=== PATIENT | female | born 1995 | race Caucasian/White ===

== ENCOUNTER 2016-12-07 04:40 | Inpatient (IN) | payer OTHER ==
[2016-12-07] MEDS ORDERED: Sodium Chloride 0.9% 10 ML Syringe FLUSH PRN (05:39)
[2016-12-07] MEDS ORDERED: Nalbuphine 20 MG/1 ML Amp IVPUSH PRN (05:39)
[2016-12-07] MEDS ORDERED: Lidocaine 1% 50 ML MDV INJECT ONE (05:39)
[2016-12-07] MEDS ORDERED: Ondansetron 4 MG/2 ML SDV IVPUSH PRN ×2 (05:39→07:35)
[2016-12-07] MEDS ORDERED: Lactated Ringers 1,000 ML IV SCH (05:45)
[2016-12-07] MEDS ORDERED: Oxytocin/Lactated Ringers 10 UNIT/1,000 ML BAG IV SCH (05:45)
[2016-12-07] MEDS ORDERED: fentaNYL 100 MCG/2 ML SDV EPIDUR PRN (07:35)
[2016-12-07] MEDS ORDERED: ePHEDrine 50 MG/ML SDV IVPUSH PRN (07:35)
--- NOTE | 2016-12-07 07:37 | PCM.PREANE ---
Preanesthetic Assessment - Physical Assessment Height: 1.63 m Weight: 99.79 kg - Lab Values: Laboratory Last Values WBC 18.32 K/mm3 (3.98-10.04) H 12/07/16 05:38 RBC 4.42 M/mm3 (3.98-5.22) 12/07/16 05:38 Hgb 12.7 gm/L (11.2-15.7) 12/07/16 05:38 Hct 37.4 % (34.1-44.9) 12/07/16 05:38 MCV 84.6 fl (79.4-94.8) 12/07/16 05:38 MCH 28.7 pg (25.6-32.2) 12/07/16 05:38 MCHC 34.0 g/dl (32.2-35.5) 12/07/16 05:38 RDW Std Deviation 46.8 fL (36.4-46.3) H 12/07/16 05:38 Plt Count 232 K/mm3 (182-369) 12/07/16 05:38 MPV 12.4 fl (9.4-12.3) H 12/07/16 05:38 Neut % (Auto) 83.7 % (34.0-71.1) H 12/07/16 05:38 Lymph % (Auto) 11.6 % (19.3-51.7) L 12/07/16 05:38 [place] % (Auto) 4.3 % (4.7-12.5) L 12/07/16 05:38 Eos % (Auto) 0.1 (0.7-5.8) L 12/07/16 05:38 Baso % (Auto) 0.1 % (0.1-1.2) 12/07/16 05:38 Neut # (Auto) 15.32 K/mm3 (1.56-6.13) H 12/07/16 05:38 Lymph # (Auto) 2.13 K/mm3 (1.18-3.74) 12/07/16 05:38 [place] # (Auto) 0.79 K/mm3 (0.24-0.36) H 12/07/16 05:38 Eos # (Auto) 0.02 K/mm3 (0.04-0.36) L 12/07/16 05:38 Baso # (Auto) 0.02 K/mm3 (0.01-0.08) 12/07/16 05:38 Blood Type O POSITIVE 12/07/16 05:38 Gel Antibody Screen Negative 12/07/16 05:38 - Allergies Allergies/Adverse Reactions: Allergies Allergy/AdvReac Type Severity Reaction Status Date / Time No Known Allergies Allergy Verified 05/07/16 18:06 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 , Other (see below) Other OB/BYN History: Child delivered by - SUBSTANCE USE Smoking Status *Q: Never Smoker Second Hand Smoke Exposure: Yes Recreational Drug Use History: No - HOME MEDS Home Medications: Home Meds Vits #90/Iron Fum/FA [ Formula] 1 tab PO DAILY 12/06/16 [ History] - CURRENT (IN HOUSE) MEDS Current Meds: Current Medications Lactated Ringer's (Ringers, Lactated) 1,000 mls @ 100 mls/hr IV ASDIRECTED JAMAL Oxytocin/Lactated Ringer's (Pitocin In Lr 10 Units/1,000 Ml) 10 unit in 1,000 mls @ 500 mls/hr IV TITRATE JAMAL Nalbuphine HCl (Nubain) 10 mg IVPUSH Q2H PRN PRN Reason: Pain (moderate 4-6) Ondansetron HCl (Zofran) 4 mg IVPUSH Q4H PRN PRN Reason: Nausea/Vomiting Sodium Chloride (Saline Flush) 10 ml FLUSH ASDIRECTED PRN PRN Reason: Keep Vein Open Discontinued Medications Lidocaine HCl (Xylocaine 1%) 50 ml INJECT ONETIME ONE Stop: 12/07/16 05:40 Preanesthetic Assessment - ANESTHESIA/TRANSFUSION/FAMILY HX Anesthesia/Transfusion History: No Prior Anesthesia, No Prior Transfusion(s) Family History of Anesthesia Reaction: No Intubation History: Unknown - REVIEW OF SYSTEMS Constitutional: Reports: no symptoms 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: 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 Respiratory: Reports: no symptoms Cardiovascular: Reports: blood pressure problem (gestational hypertension no treatment warranted) GI: Reports: no symptoms Other: Reports: None - PHYSICAL ASSESSMENT HR: 93 O2 Sat by Pulse Oximetry: 98 RR: 22 BP: 140/96 Temp: 36.7 C Height: 1.63 m Weight: 99.79 kg NPO Status Date: 12/06/16 NPO Status Time: 19:00 ASA Class: 2 Mental Status: Alert & Oriented x3 Airway Class: Mallampati = 2 Dentition: Reports: Normal Dentition, Caries Thyro-Mental Finger Breadths: 3 Mouth Opening Finger Breadths: 3 ROM/Head Extension: Full Respiratory Status: lungs clear to auscultation bilaterally Cardiovascular Status: regular rate & rhythm, normal S1, S2, no murmur, blood pressure WNL - LAB Values: Laboratory Last Values WBC 18.32 K/mm3 (3.98-10.04) H 12/07/16 05:38 RBC 4.42 M/mm3 (3.98-5.22) 12/07/16 05:38 Hgb 12.7 gm/L (11.2-15.7) 12/07/16 05:38 Hct 37.4 % (34.1-44.9) 12/07/16 05:38 MCV 84.6 fl (79.4-94.8) 12/07/16 05:38 MCH 28.7 pg (25.6-32.2) 12/07/16 05:38 MCHC 34.0 g/dl (32.2-35.5) 12/07/16 05:38 RDW Std Deviation 46.8 fL (36.4-46.3) H 12/07/16 05:38 Plt Count 232 K/mm3 (182-369) 12/07/16 05:38 MPV 12.4 fl (9.4-12.3) H 12/07/16 05:38 Neut % (Auto) 83.7 % (34.0-71.1) H 12/07/16 05:38 Lymph % (Auto) 11.6 % (19.3-51.7) L 12/07/16 05:38 [place] % (Auto) 4.3 % (4.7-12.5) L 12/07/16 05:38 Eos % (Auto) 0.1 (0.7-5.8) L 12/07/16 05:38 Baso % (Auto) 0.1 % (0.1-1.2) 12/07/16 05:38 Neut # (Auto) 15.32 K/mm3 (1.56-6.13) H 12/07/16 05:38 Lymph # (Auto) 2.13 K/mm3 (1.18-3.74) 12/07/16 05:38 [place] # (Auto) 0.79 K/mm3 (0.24-0.36) H 12/07/16 05:38 Eos # (Auto) 0.02 K/mm3 (0.04-0.36) L 12/07/16 05:38 Baso # (Auto) 0.02 K/mm3 (0.01-0.08) 12/07/16 05:38 Blood Type O POSITIVE 12/07/16 05:38 Gel Antibody Screen Negative 12/07/16 05:38 Reviewed and Noted. - ALLERGIES Allergies/Adverse Reactions: Allergies Allergy/AdvReac Type Severity Reaction Status Date / Time No Known Allergies Allergy Verified 05/07/16 18:06 - ANESTHESIA PLAN Preop Beta Birgit: No Anesthesia Type Planned: Epidural - ACKNOWLEDGEMENTS Pt an Appropriate Candidate for the Planned Anesthesia: Yes Alternatives and Risks of Anesthesia Discussed w Pt/Guardian: Yes Pt/Guardian Understands and Agrees with Anesthesia Plan: Yes
[2016-12-07] MEDS ORDERED: Bupivacaine/fentaNYL/NS 100 ML Bag EPIDUR SCH (07:45)
--- NOTE | 2016-12-07 10:17 | PCM.LDHP ---
L&D History of Present Illness - General Date of Service: 12/07/16 Admit Problem/Dx: Patient Status Order with Admit Dx/Problem 12/07/16 05:39 Patient Status [ADT] Routine 12/07/16 08:38 Patient Status [ADT] Routine Admission Diagnosis/Problem Admission Diagnosis/Problem 12/07/16 10:10 39-5/7 week intrauterine , active labor, history of previous section desire for vaginal after section Source of Information: Patient History Limitations: Reports: No limitations - History of Present Illness Introduction:: History present illness patient is a 21-year-old 4 para 10-1 white female who is admitted in active labor, cervical dilation of 5 cm and renetta every 3 minutes. She was in earlier and found to be possibly in early labor versus false labor. She is now returned. heart tones are reassuring upon admission and patient rapidly went to complete cervical dilation. She has history of previous section which was done for failure to progress after induction which was done for elective reasons. She wished to at this time and appeared to be a good candidate for . The procedure of , risks, benefits, possible need for section are all discussed with the patient beforehand and consent signed. The patient is a for section in case that was necessary. Anesthesia and surgery crews were alerted of the patient's presence in labor and delivery. IV was established and the patient was continuously monitored. 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 She had one delivery on 09/30/2012 that was a section for failure to progress. 6 lbs. 8 oz. female born and followed in [facility]. The baby's name is Shaan. Patient's had 2 miscarriages at approximately 5 weeks gestational age. Both in June of 2014 and 2014. course has been relatively unremarkable. She declined flu vaccine. Her [place] depression screen scar was too. She group B strep screen was negative. Patient had menarche at age 10. Cycles q. 20 days. Positive hCG was on 04/04/2016. Her last menstrual period 2015 which is what her was dated by. She had 4 ultrasounds after that and all supported her MARY. She was noted to be rubella immune. She had her diphtheria pertussis tetanus shot on 10/09/2016. Her first visit was on 06/03/2016. Her weight gain during the course of was approximately 27 pounds. Her vital signs remained stable throughout the and her fundal height growth was appropriate. laboratory testing: Blood is O. positive. Negative and breast-feeding. Platelets at first it was over 389,000. Pap smear was negative. Rubella titer showed immunity. RPR is nonreactive. Hepatitis B surface antigen and HIV assays were negative. Chlamydia and gonorrhea tests were negative. Her one-hour GTT was normal at 112. Her of platelets and second trimester were 369,000. Hemoglobin is 12.1. Group B strep screen was negative. Hemoglobin and third trimester was 11.4 and patient was started on iron therapy. Allergies none Medications: Of 1. vitamins daily 2. Ferrous sulfate 325 mg daily. Past medical history: 1. Miscarriage x2 2. Secondary infertility. Past surgical history: section 2012. Family history is noncontributory no bleeding, blood clotting, and a seizure as problems noted in the family. Social history: Patient is . is [place]. She denies any significant loss of alcohol, drugs or tobacco. She lives in [place]. Review of systems. Cardiac-negative Respiratory-normal Breasts-changes consistent with GI-normal -changes consistent with Neurological-normal Musculoskeletal-normal The exam: General this is a well-developed, well-nourished, pleasant female stated age distress. Last evaluation in clinic on 12/04/2016 her blood pressure was 136/82. Her weight was 218. In general patient well-developed, well-nourished, pleasant young stated age in no acute distress. Skin is warm dry without lesions. HEENT, neck and back within normal Lungs are clear with good breath sounds in all bentley. Cardiovascular exam shows regular rate and rhythm without murmurs. Breast exam deferred. Abdomen is protuberant with with last fundal height clinic being 39 cm. Baby in vertex presentation on cervical exam. Cervical exam 5 cm, benefits, bag calderon, anterior, very soft when examined upon admission in labor and delivery in labor. 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 , Other (see below) Other OB/BYN History: Child delivered by Social & Family History - Tobacco Use Smoking Status *Q: Never Smoker Second Hand Smoke Exposure: Yes - Recreational Drug Use Recreational Drug Use: No H&P Review of Systems - Review of Systems: Review Of Systems: See Below L&D Exam - Exam Exam: See Below - Vital Signs Vital Signs: Last Vital Signs Temp 36.7 C 12/07/16 07:57 Pulse 93 12/07/16 07:57 Resp 22 H 12/07/16 07:57 BP 140/96 H 12/07/16 07:57 Pulse Ox 98 12/07/16 07:57 Weight: 99.79 kg - Patient Data Lab Results last 24 hrs: Laboratory Results - last 24 hr 12/07/16 12/07/16 Range/Units 05:38 05:38 WBC 18.32 H (3.98-10.04) K/mm3 RBC 4.42 (3.98-5.22) M/mm3 Hgb 12.7 (11.2-15.7) gm/L Hct 37.4 (34.1-44.9) % MCV 84.6 (79.4-94.8) fl MCH 28.7 (25.6-32.2) pg MCHC 34.0 (32.2-35.5) g/dl RDW Std Deviation 46.8 H (36.4-46.3) fL Plt Count 232 (182-369) K/mm3 MPV 12.4 H (9.4-12.3) fl Neut % (Auto) 83.7 H (34.0-71.1) % Lymph % (Auto) 11.6 L (19.3-51.7) % [place] % (Auto) 4.3 L (4.7-12.5) % Eos % (Auto) 0.1 L (0.7-5.8) Baso % (Auto) 0.1 (0.1-1.2) % Neut # (Auto) 15.32 H (1.56-6.13) K/mm3 Lymph # (Auto) 2.13 (1.18-3.74) K/mm3 [place] # (Auto) 0.79 H (0.24-0.36) K/mm3 Eos # (Auto) 0.02 L (0.04-0.36) K/mm3 Baso # (Auto) 0.02 (0.01-0.08) K/mm3 Blood Type O POSITIVE Gel Antibody Screen Negative Result Diagrams: 12/07/16 05:38 Problem List Initiated/Reviewed/Updated: Yes Orders Last 24hrs: Active Orders 24 hr Category Date Time Status Patient Status [ADT] Routine ADT 12/07/16 08:38 Active Activity as Tolerated [RC] PFP Care 12/07/16 05:39 Active Communication Order [RC] ASDIRECTED Care 12/07/16 05:39 Active Notify Provider [RC] ASDIRECTED Care 12/07/16 07:35 Active Notify Provider [RC] PFP Care 12/07/16 05:39 Active Notify Provider [RC] PRN Care 12/07/16 05:39 Active Peripheral IV Care [RC] . DIRECTED Care 12/07/16 05:40 Active Vital Signs [RC] PER UNIT ROUTINE Care 12/07/16 05:39 Active Clear Liquid Diet [DIET] Diet 12/07/16 Breakfast Active Bupivacaine/fentaNYL/NS [fentaNYL/Bupivacaine/NS 2 MCG- Med 12/07/16 07:45 Active 0.125% 100 ML] 100 ml EPIDUR ASDIRECTED Lactated Ringers [Ringers, Lactated] 1,000 ml Med 12/07/16 05:45 Active IV ASDIRECTED Nalbuphine [Nubain] Med 12/07/16 05:39 Active 10 mg IVPUSH Q2H PRN Ondansetron [Zofran] Med 12/07/16 07:35 Active 4 mg IVPUSH ONETIME PRN Ondansetron [Zofran] Med 12/07/16 05:39 Active 4 mg IVPUSH Q4H PRN Oxytocin/Lactated Ringers [Pitocin in LR 10 Units/1,000 Med 12/07/16 05:45 Active ML] 10 unit in 1,000 ml IV TITRATE Sodium Chloride 0.9% [Saline Flush] Med 12/07/16 05:39 Active 10 ml FLUSH ASDIRECTED PRN ePHEDrine [ePHEDrine Sulfate] Med 12/07/16 07:35 Active 5 mg IVPUSH ASDIRECTED PRN fentaNYL [Sublimaze] Med 12/07/16 07:35 Active 100 mcg EPIDUR Q3H PRN Electronic Heart Tones Ext w TOCO [WOMSER] Oth 12/07/16 05:39 Ordered Routine Electronic Heart Tones Internal [WOMSER] Per Unit Oth 12/07/16 05:39 Ordered Routine Peripheral IV Insertion Adult [OM.PC] Routine Oth 12/07/16 05:39 Ordered Resuscitation Status Routine Resus Stat 12/07/16 05:39 Ordered Medication Orders Ephedrine Sulfate (Ephedrine Sulfate) 5 mg IVPUSH ASDIRECTED PRN PRN Reason: Hypotension Fentanyl (Sublimaze) 100 mcg EPIDUR Q3H PRN PRN Reason: Pain Last Admin: 12/07/16 07:50 Dose: 100 mcg Fentanyl/Bupivacaine HCl (Fentanyl/Bupivacaine/Ns 2 Mcg-0.125% 100 Ml) 100 ml EPIDUR ASDIRECTED [facility] Last Admin: 12/07/16 07:50 Dose: 100 ml Lactated Ringer's (Ringers, Lactated) 1,000 mls @ 100 mls/hr IV ASDIRECTED [facility] Last Admin: 12/07/16 07:55 Dose: 999 mls/hr Oxytocin/Lactated Ringer's (Pitocin In Lr 10 Units/1,000 Ml) 10 unit in 1,000 mls @ 500 mls/hr IV TITRATE [facility] Last Admin: 12/07/16 09:45 Dose: 999 mls/hr Nalbuphine HCl (Nubain) 10 mg IVPUSH Q2H PRN PRN Reason: Pain (moderate 4-6) Last Admin: 12/07/16 07:40 Dose: 10 mg Ondansetron HCl (Zofran) 4 mg IVPUSH Q4H PRN PRN Reason: Nausea/Vomiting Ondansetron HCl (Zofran) 4 mg IVPUSH ONETIME PRN PRN Reason: Nausea/Vomiting Sodium Chloride (Saline Flush) 10 ml FLUSH ASDIRECTED PRN PRN Reason: Keep Vein Open Assessment/Plan Comment:: Assessment: 1. Term intrauterine at 39-5/7 weeks gestational size, active labor, history of previous section with desire for vaginal after section 2. Risks for the include history of previous section. 3. T. dap up-to-date 4. Patient plans to nurse 5. Epidural in labor and delivery. Plan: 1. Anticipate successful with vaginal . 2. Continues monitoring 3. IV access, labs to be done, consents for and the. Have alerted anesthesia and surgery Tomer left and is in house 4. Support nursing decision
--- NOTE | 2016-12-07 10:18 | PCM.SN ---
- Free Text/Narrative Note: Cathy is a 21-year-old 4, now para 2-0-2-2 female who came to L&D with regular contractions this morning at 38-5/7 weeks gestation. She was having quite a bit of pain so she received an epidural and felt much relief. She quickly progressed to complete dilation. At 0944 hours, she delivered a viable 3050g (6lbs, 11.6oz), 19.5 inch female over an intact perineum. She had a minor left vaginal wall laceration that was repaired with 3- 0 monocryl. Baby's name is "Saray Blanton". A 3-vessel cord was appreciated. IV Pitocin was started immediately after delivery of the . The placenta then delivered at 0949 hours in a Crane presentation. It was found to be intact. EBL 100 cc. Patient plans to breast feed. Mom and baby both doing well.
[2016-12-07] MEDS ORDERED: Benzocaine/Menthol 20%-0.5% Spray 56 GM Canister TOP PRN (10:23)
[2016-12-07] MEDS ORDERED: Lanolin 100% Cream 7 GM Tube TOP PRN (10:23)
[2016-12-07] MEDS ORDERED: Docusate Sodium 100 MG Cap PO PRN (10:23)
[2016-12-07] MEDS ORDERED: Acetaminophen 325 MG Tab PO PRN (10:23)
[2016-12-07] MEDS ORDERED: Witch Hazel Medicated Pads 100/Jar TOP PRN (10:23)
[2016-12-07] MEDS: Ibuprofen 600 MG Tab PO PRN ×2 (19:37→23:58)
[2016-12-07] MEDS ORDERED: Bupivacaine 0.25% 10 ML SDV ONE (22:22)
[2016-12-08] MEDS: Ibuprofen 600 MG Tab PO PRN (07:09)
[2016-12-08] MEDS ORDERED: Prenatal Multivitamin with Calcium/Folic Acid/Iron Tab PO SCH (09:00)
[2016-12-08 09:06] VITALS: BP 142/83
--- NOTE | 2016-12-08 11:52 | PCM.DCSUM1 ---
Discharge Summary - Hospital Course Free Text/Narrative:: Cathy is a 21-year-old 4, now para 2-0-2-2 female who came to L&D with regular contractions this morning at 38-5/7 weeks gestation. She was having quite a bit of pain so she received an epidural and felt much relief. She quickly progressed to complete dilation. At 0944 hours, she delivered a viable 3050g (6lbs, 11.6oz), 19.5 inch female over an intact perineum. She had a minor left vaginal wall laceration that was repaired with 3- 0 monocryl. Baby's name is "Saray Blanton". A 3-vessel cord was appreciated. IV Pitocin was started immediately after delivery of the . The placenta then delivered at 0949 hours in a Crane presentation. It was found to be intact. EBL 100 cc. Patient plans to breast feed. Mom and baby both doing well. has been unremarkable. Minimal lochia. Voiding well. Ambulating without problems. Pt. ready for discharge. - Discharge Data Discharge Date: 12/08/16 Discharge Disposition: Home, Self-Care 01 Condition: Good - Patient Instructions Diet: Usual Diet as Tolerated (nursing diet with increased calcium and calories) Activity: As Tolerated (No intercourse or tampons until bleeding resolves.) Driving: May Drive Today, Do Not Drive Showering/Bathing: May Shower (May take a bath) Notify Provider of: Fever, Increased Pain, Swelling and Redness, Nausea and/or Vomiting - Discharge Plan Home Medications: Home Meds Vits #90/Iron Fum/FA [ Formula] 1 tab PO DAILY 12/06/16 [ History] Ibuprofen [IJD: Ibuprofen] 600 mg PO Q4H PRN #30 tablet 12/08/16 [Rx] Patient Handouts: Vaginal Delivery, Care After, Breast Pumping Tips, Easy-to- Read, Challenges and Solutions Referrals: Garth Fry MD [Primary Care Provider] - (follow with dr fry at [facility] in 6 weeks. call for appointment. ) - Discharge Summary/Plan Comment DC Time >30 min.: No Discharge Summary/Plan Comment: Discharge instructions: 1. Discharge home 2. Regular, high fiber, nursing diet with increased calories and calcium 3. Precautions given concerning fever, bleeding, s/s of DVT/PE. 4. Meds per home medication list printed, discussed with and given to the patient. 5. RTC 6 weeks-Dr. Fry-[facility]-[place]. Dx: 38 week IUP-Delivered Cond: good - Patient Data Vitals - Most Recent: Last Vital Signs Temp 36.7 C 12/08/16 08:36 Pulse 93 12/08/16 08:36 Resp 18 12/08/16 08:36 BP 142/83 H 12/08/16 08:36 Pulse Ox 98 12/08/16 08:36 Weight - Most Recent: 99.79 kg I&O - Last 24 hours: Intake & Output 12/07/16 12/08/16 12/08/16 22:59 06:59 14:59 Intake Total 120 Balance 120 Lab Results - Last 24 hrs: Laboratory Results - last 24 hr 12/08/16 Range/Units 05:23 WBC 15.80 H (3.98-10.04) K/mm3 RBC 3.58 L (3.98-5.22) M/mm3 Hgb 10.3 L (11.2-15.7) gm/L Hct 31.2 L (34.1-44.9) % MCV 87.2 (79.4-94.8) fl MCH 28.8 (25.6-32.2) pg MCHC 33.0 (32.2-35.5) g/dl RDW Std Deviation 48.4 H (36.4-46.3) fL Plt Count 199 (182-369) K/mm3 MPV 12.4 H (9.4-12.3) fl Med Orders - Current: Current Medications Acetaminophen (Tylenol) 650 mg PO Q4H PRN PRN Reason: mild pain or fever Benzocaine/Menthol (Dermoplast Pain Relief [place]) 0 gm TOP ASDIRECTED PRN PRN Reason: Perineal Comfort Measure Last Admin: 12/07/16 17:54 Dose: 56 gm Docusate Sodium (Colace) 100 mg PO BID PRN PRN Reason: Constipation Emollient Ointment (Lansinoh Hpa) 0 gm TOP ASDIRECTED PRN PRN Reason: Sore Nipples Ibuprofen (Motrin) 600 mg PO Q4H PRN PRN Reason: Mild pain or fever Last Admin: 12/08/16 07:09 Dose: 600 mg Prenat Multivit/Dance Professor/Iron/Folic Ac ( Plus Iron) 1 each PO DAILY [facility] Tiffany Chacon (Tucks) 1 pad TOP ASDIRECTED PRN PRN Reason: Hemorrhoid pain Last Admin: 12/07/16 17:54 Dose: 1 tub Discontinued Medications Ephedrine Sulfate (Ephedrine Sulfate) 5 mg IVPUSH ASDIRECTED PRN PRN Reason: Hypotension Fentanyl (Sublimaze) 100 mcg EPIDUR Q3H PRN PRN Reason: Pain Last Admin: 12/07/16 07:50 Dose: 100 mcg Fentanyl/Bupivacaine HCl (Fentanyl/Bupivacaine/Ns 2 Mcg-0.125% 100 Ml) 100 ml EPIDUR ASDIRECTED [facility] Last Admin: 12/07/16 07:50 Dose: 100 ml Lactated Ringer's (Ringers, Lactated) 1,000 mls @ 100 mls/hr IV ASDIRECTED [facility] Last Admin: 12/07/16 07:55 Dose: 999 mls/hr Oxytocin/Lactated Ringer's (Pitocin In Lr 10 Units/1,000 Ml) 10 unit in 1,000 mls @ 500 mls/hr IV TITRATE [facility] Last Admin: 12/07/16 09:45 Dose: 999 mls/hr Lidocaine HCl (Xylocaine 1%) 50 ml INJECT ONETIME ONE Stop: 12/07/16 05:40 Last Admin: 12/07/16 13:48 Dose: Not Given Nalbuphine HCl (Nubain) 10 mg IVPUSH Q2H PRN PRN Reason: Pain (moderate 4-6) Last Admin: 12/07/16 07:40 Dose: 10 mg Ondansetron HCl (Zofran) 4 mg IVPUSH Q4H PRN PRN Reason: Nausea/Vomiting Ondansetron HCl (Zofran) 4 mg IVPUSH ONETIME PRN PRN Reason: Nausea/Vomiting Sodium Chloride (Saline Flush) 10 ml FLUSH ASDIRECTED PRN PRN Reason: Keep Vein Open *Q Meaningful Use (DIS) - VTE *Q VTE Criteria *Q: - Stroke *Q Stroke Criteria *Q: - AMI *Q AMI Criteria *Q:
== END 2016-12-08 12:20 | disposition home or self-care (01) | DRG 775 ==
LOC: JD.OBCHECK 04:40 → JD.OB 04:43 → JD.OBCHECK 05:38 → JD.OB 05:38 → OBSVTOIN 09:44 → JD.OB 09:44
PROVIDERS: ADMIT Obstetrics & Gynecology; ATTEND Obstetrics & Gynecology
PROC: 10E0XZZ Delivery of Products of Conception, External Approach (ICD-10-PCS; principal; 2016-12-07)
PROC: 0UQGXZZ Repair Vagina, External Approach (ICD-10-PCS; 2016-12-07)
PROC: 00HU33Z Insertion of Infusion Device into Spinal Canal, Percutaneous Approach (ICD-10-PCS; 2016-12-07)
PROC: 3E0R3CZ (ICD-10-PCS; 2016-12-07)
DX: O34.211 Maternal care for low transverse scar from previous cesarean delivery (principal); N85.8 Other specified noninflammatory disorders of uterus; Z3A.39 39 weeks gestation of pregnancy; Z37.0 Single live birth
CPT/HCPCS: 36415; 85025; 85027; 86850; 86900; 86901; A9270-GY; J2300; J2590; J3010; J7120

== ENCOUNTER 2018-05-16 13:07 | Emergency (ER) | payer OTHER ==
[2018-05-16 13:31] VITALS: BP 136/85
--- NOTE | 2018-05-16 14:10 | EDM.PDOC ---
ED HPI GENERAL MEDICAL PROBLEM - General Chief Complaint: Lower Extremity Injury/Pain Stated Complaint: R LEG PAIN Time Seen by Provider: 05/16/18 13:24 Source of Information: Reports: Patient, RN Notes Reviewed - History of Present Illness INITIAL COMMENTS - FREE TEXT/NARRATIVE: 22 year old female with R sided back pain, sciatica for over a month. Was getting a bit better and than worse after doing house work a couple of days ago. Now more severe pain R low back with radiation of pain clear down to R foot. Pains is worse with certain types of motion. no other unusual sx. Has been taking ibuprofen, muscle relaxant without much relief. 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 HOUSE COOK History: Child delivered by Musculoskeletal History: Reports: Other (See Below) Other Musculoskeletal History: right sciatica - Past Surgical History HEENT Surgical History: Reports: Oral Surgery Social & Family History - Family History Family Medical History: Noncontributory - Tobacco Use Smoking Status *Q: Never Smoker - Caffeine Use Caffeine Use: Reports: Coffee, Soda, Tea Caffeine Use Comment: 1-2 times a month - Recreational Drug Use Recreational Drug Use: No Review of Systems - Review of Systems Review Of Systems: See Below Mouth/Throat: Reports: No Symptoms Respiratory: Denies: Shortness of Breath Cardiovascular: Denies: Chest Pain GI/Abdominal: Denies: Nausea, Vomiting Musculoskeletal: Reports: Back Pain, Leg Pain Skin: Reports: No Symptoms Neurological: Reports: Numbness (has had occasional numbness down the back of R leg) ED EXAM, GENERAL - Physical Exam Exam: See Below General Appearance: Alert, Mild Distress Head: Atraumatic Neck: Supple Respiratory/Chest: No Respiratory Distress Back Exam: Paraspinal Tenderness (R low back, no visible spasm). No: CVA Tenderness (L), CVA Tenderness (R) Extremities: Normal Inspection Neurological: Alert, No Motor/Sensory Deficits, Other (pain with straight leg raising R worse than left) Course - Vital Signs Last Recorded V/S: Last Vital Signs Temp 97.4 F 05/16/18 13:29 Pulse 80 05/16/18 13:29 Resp 20 05/16/18 13:29 BP 136/85 05/16/18 13:29 Pulse Ox 98 05/16/18 13:29 Departure - Departure Time of Disposition: 14:05 Disposition: Home, Self-Care 01 Condition: Fair Clinical Impression: Sciatica Qualifiers: Laterality: right Qualified Code(s): M54.31 - Sciatica, right side - Discharge Information Prescriptions: Naproxen [Naprosyn] 500 mg PO Q12HR #14 tab Referrals: Andreina Haile PA [Primary Care Provider] - Forms: ED Department Discharge Additional Instructions: rest back, no heavy lifting, continue to alternate ice and heat as needed, Naprosyn 500 mg twice daily, prednisone (steroid medication) as prescribed, Physical therapy until symptoms resolving. Follow up with your regular provider in about 8 to 10 days for recheck. Return to ED as needed.
== END 2018-05-16 14:25 | disposition home or self-care (01) ==
LOC: JD.ED 13:07
DX: M54.41 Lumbago with sciatica, right side (principal)
CPT/HCPCS: 99283

== ENCOUNTER 2024-09-07 08:17 | Observation (INO) | payer OTHER ==
[2024-09-07] MEDS ORDERED: Acetaminophen 325 MG Tab PO PRN (09:38)
[2024-09-07 09:48] LABS: HEMATOCRIT 33.5 % (37.0-47.0); HEMOGLOBIN 10.2 gm/dl (12.0-16.0); MEAN CORPUSCULAR HGB CONC 30.4 g/dl (32.0-36.0); MEAN CORPUSCULAR VOLUME 72.4 fl (83.0-99.0); MEAN PLATELET VOLUME 10.4 fl (9.4-12.3); PLATELET COUNT,PLT 349 K/mm3 (150-400); RED BLOOD CELL COUNT 4.63 M/mm3 (4.10-5.30); WHITE BLOOD CELL COUNT,WBC 10.39 K/mm3 (3.9-11.3)
[2024-09-07] MEDS: Betamethasone Acetate/Betamethasone Sod Phosphate 6 MG/1 ML MDV IM SCH (09:56)
[2024-09-07 10:16] LABS: CREATININE 0.6 mg/dL (0.55-1.02)
[2024-09-07 10:17] LABS: EST CRCL DRUG DOSING (CG) 117.31 mL/min
[2024-09-07 10:18] LABS: CREATININE,URINE RAND 154.5 mg/dL (30.0-125.0); PROTEIN,URINE RANDOM 20.7 mg/dL (0.0-11.8)
[2024-09-07] MEDS: Prenatal Multivitamin with Calcium/Folic Acid/Iron Tab PO SCH (10:54)
[2024-09-07] MEDS: Calcium Carbonate 500 MG Tab.Chew PO PRN (17:26)
[2024-09-08 08:05] VITALS: BP 146/79; PULSE 100
== END 2024-09-08 08:45 | disposition home or self-care (01) ==
LOC: JD.OBCHECK 08:17 → JD.OB 08:18 → JD.OBCHECK 09:38 → JD.OB 12:45
PROVIDERS: ADMIT Obstetrics & Gynecology; ATTEND Obstetrics & Gynecology
DX: O44.13 Complete placenta previa with hemorrhage, third trimester (principal); Z3A.33 33 weeks gestation of pregnancy; O13.3 Gestational [pregnancy-induced] hypertension without significant proteinuria, third trimester
CPT/HCPCS: 36415; 59025; 76816; 76817; 76818; 82565; 82570; 83615; 84156; 84450; 84460; 84520; 85027; 96372; A9270; J0702

== ENCOUNTER 2024-09-29 05:16 | Inpatient (IN) | payer OTHER ==
[~2024-09-29 05:16] MED LIST: Sodium Chloride 0.9% 10 ML Syringe FLUSH PRN
[2024-09-29] MEDS: Sodium Chloride 0.9% 10 ML Syringe FLUSH SCH (05:20)
[2024-09-29] MEDS: Lactated Ringers 1,000 ML IV SCH ×2 (05:55→07:27)
[2024-09-29 06:01] LABS: BASOPHILS PERCENT AUTO 0.2 % (0.0-1.0); EOSINOPHILS ABSOLUTE AUTO 0.1 K/mm3 (0.0-0.4); EOSINOPHILS PERCENT AUTO 0.7 % (0.0-6.0); HEMATOCRIT 36.7 % (37.0-47.0); IMMATURE GRAN ABSOLUTE AUTO 0.03 K/mm3 (0.00-0.05); IMMATURE GRAN PERCENT AUTO 0.3 % (0.0-0.4); LYMPHOCYTES ABSOLUTE AUTO 2.9 K/mm3 (1.0-4.8); LYMPHOCYTES PERCENT AUTO 27.9 % (24.0-44.0); MEAN CORPUSCULAR HEMOGLOBIN 22.2 pg (28.0-32.0); MEAN CORPUSCULAR VOLUME 74.1 fl (83.0-99.0); MEAN PLATELET VOLUME 11.2 fl (9.4-12.3); MONOCYTES ABSOLUTE AUTO 0.6 K/mm3 (0.0-0.8); MONOCYTES PERCENT AUTO 5.5 % (0.0-8.0); NEUTROPHILS ABSOLUTE AUTO 6.9 K/mm3 (1.8-7.7); NEUTROPHILS PERCENT AUTO 65.4 % (41.0-71.0); PLATELET COUNT,PLT 297 K/mm3 (150-400); RED BLOOD CELL COUNT 4.95 M/mm3 (4.10-5.30); WHITE BLOOD CELL COUNT,WBC 10.55 K/mm3 (3.9-11.3)
[2024-09-29] MEDS ORDERED: Ondansetron 4 MG/2 ML SDV ONE (06:33)
[2024-09-29] MEDS ORDERED: ceFAZolin 2 GM Vial ONE (06:33)
[2024-09-29] MEDS ORDERED: Dexamethasone 4 MG/ML SDV ONE (06:33)
[2024-09-29] MEDS ORDERED: dexmedeTOMIDine HCl 200 MCG/2 ML SDV ONE (06:33)
[2024-09-29] MEDS ORDERED: Phenylephrine 1% 10 MG/ML SDV ONE (06:34)
[2024-09-29] MEDS ORDERED: Morphine PF 10 MG/10 ML SDV ONE (06:37)
[2024-09-29] MEDS: Metoclopramide 10 MG/2 ML SDV IVPUSH ONE (07:16)
[2024-09-29] MEDS: Citric Acid/Sodium Citrate Solution 30 ML Cup PO ONE (07:16)
[2024-09-29] MEDS ORDERED: Tranexamic Acid 1,000 MG/10 ML Vial ONE ×2 (07:36→07:52)
[2024-09-29] MEDS ORDERED: ePHEDrine 50 MG/ML SDV ONE (07:54)
[2024-09-29] MEDS ORDERED: Oxytocin/0.9 % Sodium Chloride 30 UNIT/500 ML BAG IV SCH (08:00)
[2024-09-29] MEDS ORDERED: fentaNYL 100 MCG/2 ML SDV IVPUSH PRN (08:52)
[2024-09-29] MEDS ORDERED: Meperidine 50 MG/ML Vial IVPUSH PRN (08:52)
[2024-09-29] MEDS ORDERED: Ondansetron 4 MG/2 ML SDV IVPUSH PRN (08:52)
[2024-09-29] MEDS ORDERED: ePHEDrine 50 MG/ML SDV IVPUSH PRN (08:56)
[2024-09-29] MEDS ORDERED: diphenhydrAMINE 50 MG/ML SDV IVPUSH PRN (08:56)
[2024-09-29] MEDS ORDERED: Naloxone 0.4 MG/ML SDV IVPUSH PRN (08:56)
[2024-09-29] MEDS ORDERED: Sennosides 8.6 MG Tab PO PRN (08:56)
[2024-09-29] MEDS: Acetaminophen 325 MG Tab PO SCH (12:01)
[2024-09-29] MEDS: Ibuprofen 800 MG Tab PO SCH (12:02)
[2024-09-29] MEDS: Methylergonovine 0.2 MG/1 ML Amp IM ONE (12:45)
[2024-09-29] MEDS: Tranexamic Acid 1,000 MG/10 ML Vial IVPUSH ONE (12:46)
[2024-09-29 13:04] LABS: BASOPHILS PERCENT AUTO 0.1 % (0.0-1.0); HEMATOCRIT 34.1 % (37.0-47.0); HEMOGLOBIN 10.3 gm/dl (12.0-16.0); IMMATURE GRAN PERCENT AUTO 0.5 % (0.0-0.4); LYMPHOCYTES ABSOLUTE AUTO 1.1 K/mm3 (1.0-4.8); LYMPHOCYTES PERCENT AUTO 5.3 % (24.0-44.0); MEAN CORPUSCULAR HEMOGLOBIN 22.4 pg (28.0-32.0); MEAN CORPUSCULAR HGB CONC 30.2 g/dl (32.0-36.0); MEAN CORPUSCULAR VOLUME 74.3 fl (83.0-99.0); MEAN PLATELET VOLUME 11.1 fl (9.4-12.3); MONOCYTES ABSOLUTE AUTO 0.3 K/mm3 (0.0-0.8); MONOCYTES PERCENT AUTO 1.5 % (0.0-8.0); NEUTROPHILS ABSOLUTE AUTO 18.5 K/mm3 (1.8-7.7); NEUTROPHILS PERCENT AUTO 92.6 % (41.0-71.0); PLATELET COUNT,PLT 272 K/mm3 (150-400); RED BLOOD CELL COUNT 4.59 M/mm3 (4.10-5.30)
[2024-09-29] MEDS: Lactated Ringers 1,000 ML IV ONE (13:19)
[2024-09-29 13:21] LABS: INR 0.97; PROTHROMBIN TIME 10.3 SECONDS (9.7-12.0)
[2024-09-29 13:24] LABS: SLIDE REVIEW ABNORMAL SMEAR
[2024-09-29 13:38] LABS: PTT,PARTIAL THROMBOPLSTIN TIME 23.9 SECONDS (21.7-31.4)
[2024-09-29] MEDS: Docusate Sodium 100 MG Cap PO SCH (14:16)
[2024-09-29] MEDS: Dextrose 5%-Lactated Ringers 1,000 ML IV SCH (14:39)
[2024-09-29] MEDS: diphenhydrAMINE 50 MG/ML SDV IVPUSH PRN (15:19)
[2024-09-29] MEDS: oxyCODONE 5 MG Tab PO PRN (21:42)
[2024-09-30 05:44] LABS: HEMATOCRIT 28.9 % (37.0-47.0); MEAN CORPUSCULAR HEMOGLOBIN 22.4 pg (28.0-32.0); MEAN CORPUSCULAR HGB CONC 29.8 g/dl (32.0-36.0); MEAN CORPUSCULAR VOLUME 75.3 fl (83.0-99.0); MEAN PLATELET VOLUME 11.2 fl (9.4-12.3); PLATELET COUNT,PLT 253 K/mm3 (150-400); RED BLOOD CELL COUNT 3.84 M/mm3 (4.10-5.30); WHITE BLOOD CELL COUNT,WBC 16.49 K/mm3 (3.9-11.3)
[2024-09-30 05:54] LABS: HEMOGLOBIN 8.6 gm/dl (12.0-16.0)
[2024-09-30] MEDS: Ferrous Sulfate 324 MG Tab.EC PO SCH (07:36)
[2024-09-30] MEDS ORDERED: Simethicone 80 MG Tab.Chew PO PRN (16:18)
[2024-09-30] MEDS: Simethicone 80 MG Tab.Chew PO PRN (17:50)
[2024-09-30] MEDS: Ibuprofen 800 MG Tab PO SCH (22:17)
[2024-09-30] MEDS: Acetaminophen 325 MG Tab PO SCH (22:17)
[2024-10-01] MEDS: Acetaminophen 325 MG Tab PO SCH (07:37)
[2024-10-01] MEDS: ceFAZolin 2 GM in Sodium Chloride 0.9% 10 ML IV ONE (07:37)
[2024-10-01] MEDS: Ibuprofen 800 MG Tab PO SCH (07:37)
[2024-10-01 16:20] VITALS: BP 140/87; PULSE 99
== END 2024-10-01 18:30 | disposition home or self-care (01) | DRG 787 ==
LOC: JD.OB 05:16
PROVIDERS: ADMIT Obstetrics & Gynecology; ATTEND Obstetrics & Gynecology
PROC: 10D00Z1 Extraction of Products of Conception, Low, Open Approach (ICD-10-PCS; principal; 2024-09-29 07:30)
DX: O44.03 Complete placenta previa NOS or without hemorrhage, third trimester (principal); D62 Acute posthemorrhagic anemia; O72.1 Other immediate postpartum hemorrhage; O34.211 Maternal care for low transverse scar from previous cesarean delivery; Z3A.36 36 weeks gestation of pregnancy; Z37.0 Single live birth
CPT/HCPCS: 36415; 59025; 85025; 85027; 85384; 85610; 85730; 86592; 86850; 86900; 86901; 86922; 94762; A9270-GY; J0690; J1100; J1200; J2210; J2274; J2371; J2405; J2765; J3490; J7120; J7121